=== PATIENT | female | born 1980 | race Caucasian/White ===

== ENCOUNTER 2017-01-16 08:31 | Emergency (ER) | payer SELFPAY ==
[2017-01-16 08:37] VITALS: BP 114/78; PULSE 78; TEMP 97.8; BMI 25.7
[2017-01-16] MEDS ORDERED: ERYTHROMYCIN 0.5% OPHTHALMIC OINTMENT 3.5 GM TUBE OD ONE (09:25)
--- NOTE | 2017-01-16 09:25 | PDOC ---
History of Present Illness - General Chief Complaint: Eye Problem Stated Complaint: BITE/ SWOLLEN RT EYE Time Seen by Provider: 01/16/17 09:12 History Source: Patient Exam Limitations: No Limitations - History of Present Illness Initial Comments: 01/16/17 09:20 CHIEF COMPLAINT:Sweling to the right upper eyelid HISTORY OF PRESENT ILLNESS: Pt is an otherwise healthy 36-year-old female, woke up this a.m. with swelling to right upper eyelid, patient reports seeing a bite on her upper eyelid and rubbing and scratching area. Denies any watery or scratchy eyes, denies any pain, denies any visual disturbance. REVIEW OF SYSTEMS: GENERAL/CONSTITUTIONAL: No fever or chills. No weakness. No weight change. HEAD, EYES, EARS, NOSE AND THROAT: No change in vision. No Drainage and pruritus to right eye. Swollen right upper eyelid, No ear pain or discharge. No sore throat. RESPIRATORY: No cough, wheezing, or hemoptysis. SKIN : No rash or easy bruising. NEUROLOGIC: No headache, vertigo, loss of consciousness, or loss of sensation. HEMATOLOGIC/LYMPHATIC: No lymphadenopathy ALLERGIC/IMMUNOLOGIC: No hives or skin allergy. No latex allergy. PHYSICAL EXAM: GENERAL: The patient is awake, alert, and fully oriented, in no acute distress. HEAD: Normal with no signs of trauma. EYES: Pupils equal, round and reactive to light, extraocular movements intact, sclera anicteric, conjunctiva non injected, after fluorescein staining no corneal abrasion noted. Erythematous nonraised macular to right upper eyelid, edema with no erythema, no drainage. ENT: Ears normal, nares patent, oropharynx clear without exudates. Moist mucous membranes. NECK: Normal range of motion, supple without lymphadenopathy, JVD, or masses. LUNGS: Breath sounds equal, clear to auscultation bilaterally. No wheezes, and no crackles. NEUROLOGICAL: Cranial nerves II through XII grossly intact. Normal speech, normal gait. SKIN: No erythema no facial edema. Warm, Dry, normal turgor, no rashes or lesions noted. Swelling to right eyelid. Past History - Past Medical History Allergies/Adverse Reactions: Allergies Allergy/AdvReac Type Severity Reaction Status Date / Time No Known Allergies Allergy Verified 01/16/17 08:34 Home Medications: Ambulatory Orders NK [No Known Home Medication] 01/16/17 Anemia: No Asthma: No Cancer: No Cardiac Disorders: No CVA: No COPD: No CHF: No Dementia: No Diabetes: No GI Disorders: No Disorders: No HTN: No Hypercholesterolemia: No Liver Disease: No Seizures: No Thyroid Disease: No - Surgical History Abdominal Surgery: No Appendectomy: Yes Cardiac Surgery: No Cholecystectomy: No Lung Surgery: No Neurologic Surgery: No Orthopedic Surgery: No - Psycho/Social/Smoking Cessation Hx Anxiety: No Suicidal Ideation: No Smoking History: Never smoked Have you smoked in the past 12 months: No Information on smoking cessation initiated: No Hx Alcohol Use: No Drug/Substance Use Hx: No Substance Use Type: None Hx Substance Use Treatment: No *Physical Exam - Vital Signs Last Vital Signs Temp Pulse Resp BP Pulse Ox 97.8 F 78 18 114/78 98 01/16/17 08:34 01/16/17 08:34 01/16/17 08:34 01/16/17 08:34 01/16/17 08:34 Medical Decision Making - Medical Decision Making 01/16/17 09:24 A/P: Patient with swelling to right upper eyelid, most likely from bug bite patient reports that she was scratching area yesterday, there is no evidence of conjunctivitis, no evidence of cellulitis, no evidence of stye, hordeolum, there is however small erythematous lesion which may represent a bug bite third spacing and tissue from rubbing and scratching area. Encourage patient to apply cool compresses, erythromycin ophthalmic ointment. Return to ER if any increased redness swelling or signs of infection. 01/16/17 09:28 *DC/Admit/Observation/Transfer Diagnosis at time of Disposition: Swollen eyelid Qualifiers: Laterality: right Qualified Code(s): H02.843 - Edema of right eye, unspecified eyelid - Discharge Dispostion Disposition: HOME Condition at time of disposition: Good Admit: No - Referrals Referrals: Fabiano Levin MD [Staff Physician] - - Patient Instructions Additional Instructions: Cool compresses to eye If any increased redness swelling or signs of infection return to ER. Erythromycin ophthalmic ointment twice a day for the next 5 days
[2017-01-16] MEDS ORDERED: ERYTHROMYCIN 0.5% OPHTHALMIC OINTMENT 3.5 GM TUBE ONE (09:28)
[2017-01-16] MEDS ORDERED: LORATADINE 10 MG TABLET PO ONE (09:30)
[2017-01-16] MEDS ORDERED: LORATADINE 10 MG TABLET ONE (09:31)
== END 2017-01-16 09:36 | disposition home or self-care (01) ==
LOC: JERFT 08:31
DX: H02.843 Edema of right eye, unspecified eyelid (principal)
CPT/HCPCS: 99281-25

== ENCOUNTER 2017-07-08 20:54 | Emergency (ER) | payer SELFPAY ==
--- NOTE | 2017-07-08 21:05 | PDOC ---
Rapid Medical Evaluation Time Seen by Provider: 07/08/17 21:04 Medical Evaluation: Allergies Allergy/AdvReac Type Severity Reaction Status Date / Time No Known Allergies Allergy Verified 04/12/17 10:05 07/08/17 21:06 36 year old female with history of hypothyroidism, appendectomy, fibroidectomy presenting with two days of cough and nasal congestion. T 99.7, P 109 Rapid flu sent. To [facility] for further evaluation.
[2017-07-08 21:07] VITALS: BP 119/78; PULSE 109; TEMP 99.7; BMI 29.0
--- NOTE | 2017-07-08 22:13 | PDOC ---
History of Present Illness - General Chief Complaint: Cold Symptoms Stated Complaint: COLD SYMPTOMS Time Seen by Provider: 07/08/17 21:04 History Source: Patient Exam Limitations: No Limitations - History of Present Illness Initial Comments: 07/08/17 22:09 36 yr female with fever , cough body aches since last night. no vomiting, feels nausea. history of hypothyroid. Timing/Duration: reports: yesterday Severity: reports: moderate Past History - Past Medical History Allergies/Adverse Reactions: Allergies Allergy/AdvReac Type Severity Reaction Status Date / Time No Known Allergies Allergy Verified 07/08/17 21:07 Home Medications: Ambulatory Orders NK [No Known Home Medication] 07/08/17 Anemia: No Asthma: No Cancer: No Cardiac Disorders: No CVA: No COPD: No CHF: No Dementia: No Diabetes: No GI Disorders: No Disorders: No HTN: No Hypercholesterolemia: No Liver Disease: No Seizures: No Thyroid Disease: Yes (hypo) - Surgical History Abdominal Surgery: No Appendectomy: Yes Cardiac Surgery: No Cholecystectomy: No Lung Surgery: No Neurologic Surgery: No Orthopedic Surgery: No - Immunization History Immunization Up to Date: Yes - Suicide/Smoking/Psychosocial Hx Smoking History: Never smoked Have you smoked in the past 12 months: No Information on smoking cessation initiated: No Hx Alcohol Use: No Drug/Substance Use Hx: No Substance Use Type: None Hx Substance Use Treatment: No Respiratory Specific PMHX - Complaint Specific PMHX Bronchitis: No Pneumonia: No Review of Systems - Review of Systems Able to Perform ROS?: Yes Is the patient limited [place] proficient: No Constitutional: Yes: Symptoms Reported, Fever HEENTM: Yes: Symptoms Reported Respiratory: Yes: Symptoms reported, Cough Cardiac (ROS): No: Symptoms Reported *Physical Exam - Vital Signs Last Vital Signs Temp Pulse Resp BP Pulse Ox 99.7 F H 109 H 21 119/78 100 07/08/17 21:04 07/08/17 21:04 07/08/17 21:04 07/08/17 21:04 07/08/17 21:04 - Physical Exam General Appearance: Yes: Nourished, Appropriately Dressed HEENT: positive: EOMI, LAYLA, Normal ENT Inspection, TMs Normal, Pharynx Normal, Pharyngeal Erythema, TM Erythema. negative: Tonsillar Exudate, Tonsillar Erythema Neck: positive: Supple Respiratory/Chest: positive: Lungs Clear, Normal Breath Sounds Cardiovascular: positive: Regular Rhythm, Regular Rate Gastrointestinal/Abdominal: positive: Normal Bowel Sounds, Soft Musculoskeletal: positive: Normal Inspection, Other (generalsied muslce soreness , aches). negative: CVA Tenderness, CVA Tenderness (R), CVA Tenderness (L), Decreased Range of Motion, Vertebral Tenderness Extremity: positive: Normal Capillary Refill, Normal Inspection, Normal Range of Motion Integumentary: positive: Normal Color, Dry, Warm Neurologic: positive: Fully Oriented, Alert, Normal Mood/Affect, Normal Response , Motor Strength 10/09 ED Treatment Course - ADDITIONAL ORDERS Additional order review: 07/08/17 20:30 Influenza Types A,B Antigen (TAMMI) - Preliminary Nasopharyngeal Swab - Preliminary Medical Decision Making - Medical Decision Making 07/08/17 22:10 cc: fever, cough body aches since last night positive Flu B pt refused Tamiflu dc home with supportive cares. *DC/Admit/Observation/Transfer Diagnosis at time of Disposition: Influenza B - Discharge Dispostion Disposition: HOME - Referrals - Patient Instructions Printed Discharge Instructions: DI for Influenza -- Adult Additional Instructions: get pleanty of rest drink pleanty of fluids motrin and tylenol as directed for fever and body aches rest at home avoid crowds, parties infants and elderly follow with your doctor next week if any worsening symptoms - Post Discharge Activity Forms/Work/School Notes: Back to Work
== END 2017-07-08 22:17 | disposition home or self-care (01) ==
LOC: JERFT 20:54
DX: J10.1 Influenza due to other identified influenza virus with other respiratory manifestations (principal); B97.89 Other viral agents as the cause of diseases classified elsewhere; E03.9 Hypothyroidism, unspecified
CPT/HCPCS: 87804; 99281-25

== ENCOUNTER 2021-05-22 03:08 | Emergency (ER) | payer SELFPAY ==
[2021-05-22 03:37] VITALS: BP 150/83; PULSE 97; TEMP 98.8; BMI 29.9
[2021-05-22] MEDS ORDERED: guaiFENesin 200 MG/10 ML 10 ML UNIT-DOSE CUPS PO ONE (05:02)
[2021-05-22] MEDS ORDERED: DEXAMETHASONE SOD PHOSPHATE 10 MG/1 ML VIAL PO ONE (05:11)
[2021-05-22] MEDS ORDERED: DEXAMETHASONE SOD PHOSPHATE 10 MG/1 ML VIAL ONE (05:11)
== END 2021-05-22 06:00 | disposition home or self-care (01) ==
LOC: JER 03:08
DX: R05.9 Cough, unspecified (principal)
CPT/HCPCS: 99283-25; J1100

== ENCOUNTER 2022-10-08 21:24 | Emergency (ER) | payer OTHER ==
[2022-10-08 21:29] VITALS: BMI 29.2
[2022-10-08] MEDS ORDERED: ACETAMINOPHEN 500 MG TABLET (FP) PO ONE (22:53)
[2022-10-08 23:37] LABS: BASO % 1.3 % (0-2.0); HEMATOCRIT 36.9 % (32.4-45.2); HEMOGLOBIN 12.7 GM/dL (10.7-15.3); LYMPH % 29.8 % (8-40); MCH 28.6 pg (25.7-33.7); MCHC 34.5 g/dl (32.0-36.0); MEAN CELL VOLUME 82.7 fl (80-96); MEAN PLT VOLUME 8.2 fl (7.5-11.1); MONO % 4.2 % (3.8-10.2); NEUT % 61.7 % (42.8-82.8); PLATELET COUNT 373 10^3/uL (134-434); RBC 4.46 M/mm3 (3.60-5.2); RDW 13.5 % (11.6-15.6); WHITE BLOOD COUNT 12.4 K/mm3 (4.0-10.0)
[2022-10-08 23:38] LABS: PH,URINE 7.5 (5.0-8.0); URINE APPEARANCE CLEAR; URINE BILIRUBIN NEGATIVE (NEGATIVE); URINE COLOR YELLOW; URINE GLUCOSE (UA) NEGATIVE (NEGATIVE); URINE KETONE NEGATIVE (NEGATIVE); URINE LEUK ESTERASE NEGATIVE (NEGATIVE); URINE NITRITE NEGATIVE (NEGATIVE); URINE PROTEIN NEGATIVE (NEGATIVE)
[2022-10-08 23:57] LABS: POTASSIUM 3.8 mmol/L (3.5-5.1)
[2022-10-08 23:58] LABS: CALCIUM 8.6 mg/dL (8.5-10.1)
[2022-10-08 23:59] LABS: ALBUMIN 3.8 g/dl (3.4-5.0); BLOOD UREA NITROGEN 7.2 mg/dL (7-18); MAGNESIUM 2.3 mg/dL (1.8-2.4)
[2022-10-09 00:02] LABS: CREATININE 0.5 mg/dL (0.55-1.3)
[2022-10-09 00:04] LABS: BILIRUBIN,TOTAL 0.2 mg/dL (0.2-1); TOT PROT 7.5 g/dl (6.4-8.2)
[2022-10-09] MEDS ORDERED: KETOROLAC TROMETHAMINE 15 MG/ML VIAL IVPUSH ONE (00:30)
[2022-10-09] MEDS ORDERED: KETOROLAC TROMETHAMINE 15 MG/ML VIAL ONE (00:59)
[2022-10-09 01:50] VITALS: BP 109/68; PULSE 69; RESP 19; TEMP 98
== END 2022-10-09 03:39 | disposition home or self-care (01) ==
LOC: JER 21:24
PROC: 3E0333Z Introduction of Anti-inflammatory into Peripheral Vein, Percutaneous Approach (ICD-10-PCS; principal; 2022-10-08)
DX: R10.31 Right lower quadrant pain (principal); R10.32 Left lower quadrant pain
CPT/HCPCS: 36415; 76830-TC; 80053; 81003; 83690; 83735; 84703; 85025; 87070; 87077; 87086; 87205; 99284-25

== ENCOUNTER 2024-10-08 07:23 | Emergency (ER) | payer OTHER ==
[2024-10-08 07:34] VITALS: BP 149/96; PULSE 80; RESP 18; BMI 29.7
[2024-10-08] MEDS ORDERED: LIDOCAINE 4% PATCH TP ONE (08:21)
[2024-10-08] MEDS ORDERED: ACETAMINOPHEN 500 MG TABLET (FP) ONE (08:21)
[2024-10-08] MEDS ORDERED: KETOROLAC TROMETHAMINE 30 MG/1 ML VIAL ONE (08:21)
[2024-10-08] MEDS: LIDOCAINE 5% TOPICAL PATCH TP ONE (08:25)
[2024-10-08] MEDS: ACETAMINOPHEN 500 MG TABLET (FP) PO ONE (08:25)
[2024-10-08] MEDS: KETOROLAC TROMETHAMINE 30 MG/1 ML VIAL IM ONE (08:26)
[2024-10-08] MEDS ORDERED: METHOCARBAMOL 500 MG TABLET ONE (08:58)
[2024-10-08] MEDS: METHOCARBAMOL 750 MG TAB PO ONE (09:02)
[2024-10-08] MEDS ORDERED: LIDOCAINE PATCH REMOVAL MC SCH (22:00)
== END 2024-10-08 09:51 | disposition home or self-care (01) ==
LOC: JER 07:23
PROC: 3E0233Z Introduction of Anti-inflammatory into Muscle, Percutaneous Approach (ICD-10-PCS; principal; 2024-10-08)
DX: M79.622 Pain in left upper arm (principal); G89.29 Other chronic pain
CPT/HCPCS: 73030-TC-LT-FY; 73060-TC-LT-FY; 99284-25